=== PATIENT | male | born 1985 | race Hispanic/Latino ===

== ENCOUNTER 2018-06-18 00:59 | Emergency (ER) | payer SELFPAY ==
[2018-06-18] MEDS ORDERED: LIDOCAINE 1% MPF 5 ML VIAL ONE (01:21)
[2018-06-18] MEDS ORDERED: TETANUS & DIPHTHERIA TOX,ADULT 0.5 ML VIAL ONE (01:21)
[2018-06-18] MEDS ORDERED: BUPIVACAINE 0.5% PF 10 ML VIAL ONE (01:21)
--- NOTE | 2018-06-18 02:44 | EDPHYS ---
Physician Documentation [facility] Name: Antoni Hanna Age: 33 yrs Sex: Male : 1985 Arrival Date: 06/18/2018 Time: 01:00 Bed 11 Private MD: ED Physician David Nuñez HPI: 06/18 01:30 This 33 yrs old Male presents to ER via Ambulatory with complaints of pm1 Laceration To Hand. 01:30 The patient has a laceration related to: opening his door occurred at home, The injury pm1 was accidental. The laceration(s) is(are) located on the right hand and right wrist. Onset: The symptoms/episode began/occurred just prior to arrival. Associated signs and symptoms: Pertinent negatives: deformity, heavy bleeding, numbness distal to injury, suspected foreign body. The patient has not experienced similar symptoms in the past. Patient accidentally put his hand through his door's glass when opening it. Historical: - Allergies: 01:11 No Known Allergies; aa1 - Home Meds: 01:11 None [Active]; aa1 - PMHx: 01:11 None; aa1 - PSHx: 01:11 None; aa1 - Immunization history:: Last tetanus immunization: unknown. - Social history:: Smoking status: Patient uses tobacco products, denies chronic smoking, but will smoke occasionally. - Ebola Screening: : No symptoms or risks identified at this time. ROS: 01:30 Constitutional: Negative for fever, chills, and weight loss, Eyes: Negative for injury, pm1 pain, redness, and discharge, ENT: Negative for injury, pain, and discharge, Neck: Negative for injury, pain, and swelling, Cardiovascular: Negative for chest pain, palpitations, and edema, Respiratory: Negative for shortness of breath, cough, wheezing, and pleuritic chest pain, Abdomen/GI: Negative for abdominal pain, nausea, vomiting, diarrhea, and constipation, Back: Negative for injury and pain, : Negative for injury, bleeding, discharge, and swelling, MS/Extremity: Negative for injury and deformity. 01:30 Neuro: Negative for headache, weakness, numbness, tingling, and seizure. 01:30 Skin: Positive for laceration(s), of the palmar aspect of right wrist and right hand. Exam: 01:30 Constitutional: This is a well developed, well nourished patient who is awake, alert, pm1 and in no acute distress. Head/Face: Normocephalic, atraumatic. Neck: Trachea midline, no thyromegaly or masses palpated, and no cervical lymphadenopathy. Supple, full range of motion without nuchal rigidity, or vertebral point tenderness. No Meningismus. Chest/axilla: Normal chest wall appearance and motion. Nontender with no deformity. No lesions are appreciated. Cardiovascular: Regular rate and rhythm with a normal S1 and S2. No gallops, murmurs, or rubs. Normal PMI, no JVD. No pulse deficits. Respiratory: Lungs have equal breath sounds bilaterally, clear to auscultation and percussion. No rales, rhonchi or wheezes noted. No increased work of breathing, no retractions or nasal flaring. Back: No spinal tenderness. No costovertebral tenderness. Full range of motion. 01:30 Skin: Appearance: normal except for affected area, injury, laceration(s), the wound is pm1 approximately 3 cm(s), with a depth of 0.5 cm(s), of the dorsal aspect of proximal phalanx of right thumb, the second wound is approximately 3 cm(s), with a depth of 1 cm(s), of the dorsal aspect of right wrist and palmar aspect of right wrist. Vital Signs: 01:11 BP 127 / 65; Pulse 112; Resp 18; Temp 98.1; Pulse Ox 97% on R/A; Weight 72.57 kg; aa1 Height 5 ft. 5 in. (165.10 cm); Pain 5/10; 02:30 BP 122 / 67; Pulse 91; Resp 16; Pulse Ox 98% on R/A; Pain 0/10; aa1 01:11 Body Mass Index 26.63 (72.57 kg, 165.10 cm) aa1 Laceration: 02:41 Wound Repair of 6cm ( 2.4in ) subcutaneous laceration to dorsal aspect of proximal pm1 phalanx of right thumb, right wrist . Distal neuro/vascular/tendon intact. Anesthesia: Local anesthetic administered with 6 mls of Lido/Marcaine. Wound prep: Extensive cleansing with hibiclenz by me, Wound irrigation with saline by me, Wound explored extensively, Copious irrigation. Skin closed with 11 4-0 Prolene using simple sutures and sterile technique. Dressed with Neosporin, 4x4's, Kerlix. Patient tolerated well. MDM: 01:12 Patient medically screened. pm1 02:41 Data reviewed: vital signs. Data interpreted: Pulse oximetry: on room air is 97 %. pm1 Interpretation: normal. Counseling: I had a detailed discussion with the patient and/or guardian regarding: the historical points, exam findings, and any diagnostic results supporting the discharge/admit diagnosis, radiology results, the need for outpatient follow up, to return to the emergency department if symptoms worsen or persist or if there are any questions or concerns that arise at home. 06/18 01:12 Order name: Hand Right 3 View XRAY pm1 06/18 01:13 Order name: Prolene, Sutures; Complete Time: :23 pm06/18 01:13 Order name: Dressing - Wound; Complete Time: 02:48 pm1 06/18 01:13 Order name: Gloves, Sterile; Complete Time: pm06/18 01:13 Order name: Setup Suture Tray; Complete Time: :23 pm1 Administered Medications: 01:24 Drug: Tetanus-Diphtheria Toxoid Adult 0.5 ml {Orthoptist: Ludia. Exp: aa1 08/09/2020. Lot #: [id number]. } Route: IM; Site: left deltoid; 02:20 Drug: Lidocaine (1 %) 5 ml Volume: 5 ml; Route: Infiltration; aa1 02:20 Drug: Marcaine (0.5 %) 10 ml Volume: 10 ml; Route: Infiltration; aa1 Disposition: 06/18/18 02:43 Discharged to Home. Impression: Laceration without foreign body of right hand, Laceration without foreign body of right wrist. - Condition is Stable. - Discharge Instructions: Laceration Care, Adult. - Prescriptions for Keflex 500 mg Oral Capsule - take 1 capsule by ORAL route every 12 hours for 10 days; 20 capsule. Tramadol 50 mg Oral Tablet - take 1 tablet by ORAL route every 8 hours as needed; 12 tablet. - Medication Reconciliation Form, Thank You Letter, Antibiotic Education, Prescription Opioid Use form. - Follow up: Emergency Department; When: As needed; Reason: Worsening of condition. Follow up: Private Physician; When: 10 - 14 days; Reason: Wound Recheck, Recheck today's complaints, Continuance of care, Staple/Suture removal, Re-evaluation by your physician. - Problem is new. - Symptoms have improved. Addendum: 06/19/2018 10:47 Co-signature as Attending Physician, David Nuñez MD I agree with the assessment and c garcia plan of care. Signatures: Dispatcher [employer] EDMS Sonya Miner RN RN aa1 David Nuñez MD MD cha Marinas, Patrick, LINE MAINTENANCE SUPERVISOR LINE MAINTENANCE SUPERVISOR pm1 Corrections: (The following items were deleted from the chart) 06/18 02:50 02:43 06/18/2018 02:43 Discharged to Home. Impression: Laceration without foreign body aa1 of right hand; Laceration without foreign body of right wrist. Condition is Stable. Forms are Medication Reconciliation Form, Thank You Letter, Antibiotic Education, Prescription Opioid Use. Follow up: Emergency Department; When: As needed; Reason: Worsening of condition. Follow up: Private Physician; When: 10 - 14 days; Reason: Wound Recheck, Recheck today's complaints, Continuance of care, Staple/Suture removal, Re-evaluation by your physician. Problem is new. Symptoms have improved. pm1
--- NOTE | 2018-06-18 02:44 | ER ---
Nurse's Notes [facility] Name: Antoni Hanna Age: 33 yrs Sex: Male : 1985 Arrival Date: 06/18/2018 Time: 01:00 Bed 11 Private MD: Diagnosis: Laceration without foreign body of right hand;Laceration without foreign body of right wrist Presentation: 06/18 01:10 Presenting complaint: Patient states: his door was locked so he punched a window to get aa1 inside his house and cut his R hand. Several lacerations noted to R hand with bleeding controlled. Transition of care: patient was not received from another setting of care. Complicating Factors: There are no complicating factors for this patient. Onset of symptoms was June 18, 2018. Risk Assessment: Do you want to hurt yourself or someone else? Patient reports no desire to harm self or others. Initial Sepsis Screen: Does the patient meet any 2 criteria? No. Patient's initial sepsis screen is negative. Does the patient have a suspected source of infection? Yes: Skin breakdown/wound. Care prior to arrival: None. 01:10 Method Of Arrival: Ambulatory aa1 01:10 Acuity: BAIRON 3 aa1 Historical: - Allergies: 01:11 No Known Allergies; aa1 - Home Meds: 01:11 None [Active]; aa1 - PMHx: 01:11 None; aa1 - PSHx: 01:11 None; aa1 - Immunization history:: Last tetanus immunization: unknown. - Social history:: Smoking status: Patient uses tobacco products, denies chronic smoking, but will smoke occasionally. - Ebola Screening: : No symptoms or risks identified at this time. Screenin:12 Abuse screen: Denies threats or abuse. Denies injuries from another. Nutritional aa1 screening: No deficits noted. Tuberculosis screening: No symptoms or risk factors identified. Fall Risk None identified. Assessment: 01:12 General: Appears in no apparent distress. comfortable, Behavior is calm, cooperative, aa1 appropriate for age. General: Smells of alcohol. Pain: Complains of pain in right hand. Neuro: Level of Consciousness is awake, alert, obeys commands, Oriented to person, place, time, situation, Moves all extremities. Full function. Respiratory: Airway is patent Respiratory effort is even, unlabored, Respiratory pattern is regular, symmetrical. GI: No signs and/or symptoms were reported involving the gastrointestinal system. : No signs and/or symptoms were reported regarding the genitourinary system. EENT: No signs and/or symptoms were reported regarding the EENT system. Derm: Skin is intact, is healthy with good turgor, Skin is pink, warm \T\ dry. Musculoskeletal: Circulation, motion, and sensation intact. Capillary refill < 3 seconds, Range of motion: intact in all extremities. Injury Description: Laceration sustained to heel of right hand, palm of right hand and Right first web space is 0.5 to 2.5 cm long, not bleeding, was sustained 30-60 minutes ago. 02:00 Reassessment: Patient appears in no apparent distress at this time. Patient and/or aa1 family updated on plan of care and expected duration. Pain level reassessed. Patient is alert, oriented x 3, equal unlabored respirations, skin warm/dry/pink. Awaiting lac repair. 02:48 Reassessment: Patient appears in no apparent distress at this time. Patient is alert, aa1 oriented x 3, equal unlabored respirations, skin warm/dry/pink. Discussed d/c \T\ f/u instructions with pt \T\ friend; denies questions or concerns at this time. Vital Signs: 01:11 BP 127 / 65; Pulse 112; Resp 18; Temp 98.1; Pulse Ox 97% on R/A; Weight 72.57 kg; aa1 Height 5 ft. 5 in. (165.10 cm); Pain 5/10; 02:30 BP 122 / 67; Pulse 91; Resp 16; Pulse Ox 98% on R/A; Pain 0/10; aa1 01:11 Body Mass Index 26.63 (72.57 kg, 165.10 cm) aa1 ED Course: 01:00 Patient arrived in ED. al2 01:10 Rufus Davis NP is PHCP. pm1 01:10 David Nuñez MD is Attending Physician. pm1 01:11 Triage completed. aa1 01:11 Arm band placed on left wrist. Patient placed in an exam room, on a stretcher. aa1 01:12 Patient has correct armband on for positive identification. Bed in low position. Call aa1 light in reach. Pulse ox on. NIBP on. 01:23 Garden, Sonya, RN is Primary Nurse. aa1 02:10 X-ray completed. Portable x-ray completed in exam room. Patient tolerated procedure mh1 well. 02:11 Hand Right 3 View XRAY In Process Unspecified. EDMS 02:20 Assist provider with laceration repair on right hand that was between 2.6 to 7.5 cm aa1 using sutures. Set up tray. Performed by Rufus Davis NP Patient tolerated well. 02:50 Patient did not have IV access during this emergency room visit. aa1 Administered Medications: 01:24 Drug: Tetanus-Diphtheria Toxoid Adult 0.5 ml {Slate Splitting Supervisor: [employer]. Exp: aa1 08/09/2020. Lot #: [id number]. } Route: IM; Site: left deltoid; 02:20 Drug: Lidocaine (1 %) 5 ml Volume: 5 ml; Route: Infiltration; aa1 02:20 Drug: Marcaine (0.5 %) 10 ml Volume: 10 ml; Route: Infiltration; aa1 Outcome: 02:43 Discharge ordered by MD. pm1 02:50 Discharged to home ambulatory, with family. aa1 02:50 Condition: good 02:50 Discharge instructions given to patient, friend, Instructed on discharge instructions, follow up and referral plans. medication usage, Demonstrated understanding of instructions, follow-up care, medications, Prescriptions given X 2. 02:50 Patient left the ED. aa1 Signatures: Dispatcher [employer] [facility] Sonya Miner, MARIBEL RN aa1 Tiffany Amaya 1 Rufus Davis NP SCRIP CLERK pm1 Kerri Botello2
--- NOTE | 2018-06-18 11:28 | RAD REPORT ---
EXAM DESCRIPTION: RAD - Hand Right 3 View - 06/18/2018 2:11 am CLINICAL HISTORY: Trauma, hand laceration COMPARISON: None. FINDINGS: No fracture is identified. There is no dislocation or periosteal reaction noted. No forei gn body or other soft tissue abnormality. IMPRESSION: Negative right hand examination.
== END 2018-06-18 02:50 | disposition home or self-care (01) ==
LOC: ER 00:59
PROC: 0HQFXZZ Repair Right Hand Skin, External Approach (ICD-10-PCS; principal; 2018-06-18)
DX: S61.511A Laceration without foreign body of right wrist, initial encounter (principal); S61.011A Laceration without foreign body of right thumb without damage to nail, initial encounter; F17.200 Nicotine dependence, unspecified, uncomplicated; W45.8XXA Other foreign body or object entering through skin, initial encounter; Y93.89 Activity, other specified; Y92.009 Unspecified place in unspecified non-institutional (private) residence as the place of occurrence of the external cause; Y99.9 Unspecified external cause status
CPT/HCPCS: 90714; 99284